=== PATIENT | female | born 1980 | race Caucasian/White ===

== ENCOUNTER 2017-01-09 18:51 | Emergency (ER) | payer OTHER ==
[2017-01-09 20:35] VITALS: BP 115/79
== END 2017-01-09 20:35 | disposition home or self-care (01) ==
LOC: ED 18:51
DX: B37.0 Candidal stomatitis (principal); J01.90 Acute sinusitis, unspecified; J30.9 Allergic rhinitis, unspecified; J02.9 Acute pharyngitis, unspecified

== ENCOUNTER 2017-01-15 11:31 | Emergency (ER) | payer OTHER ==
[~2017-01-15] VITALS: Ht 157.5 cm; Wt 65.3 kg
[2017-01-15 12:24] VITALS: BP 130/60
== END 2017-01-15 12:24 | disposition home or self-care (01) ==
LOC: ED 11:31
DX: J02.9 Acute pharyngitis, unspecified (principal)